=== PATIENT | female | born 1955 | race Caucasian/White ===

== ENCOUNTER → 2016-07-18 14:08 | Outpatient (CLI) | payer BC ==
[~2016-07-18 14:08] MED LIST: BETAPACE160 MG PO; COUMADIN5 MG PO; CYMBALTA60 MG PO; FLUTICASONE PRO16 GM NASAL; PERCOCET 10/3251 TA1 PO; SOMA350 MG PO; TOPAMAX50 MG PO; VIBRAMYCIN 100100 MG PO
[2016-07-18 14:33] LABS: HEMATOCRIT 35.3 % (36.0-48.0); HEMOGLOBIN 11.7 g/dL (12-16); MCH 28.7 pg (26.0-34.0); MCHC 33.1 g/dL (31.0-37.0); MCV 86.5 fL (80.0-100.0); MEAN PLATELET VOLUME 9.5 fL (7.4-10.4); PLATELET COUNT 231 10x3/uL (130-400); RBC 4.08 10x6/uL (4.00-5.40); RDW 14.5 % (11.5-14.5); WBC 19.1 10x3/uL (4.8-10.8)
[2016-07-18 15:40] LABS: ERYTHROCYTE SEDIMENTATION RATE 28 mm/hr (0-30)
[2016-07-19 18:49] VITALS: BMI 31.3
== END | disposition home or self-care (01) ==
LOC: D.LAB 14:08
PROVIDERS: Orthopaedic Surgery
DX: M25.511 Pain in right shoulder (principal)

== ENCOUNTER 2016-07-19 14:02 | Inpatient (IN) | payer BC ==
[~2016-07-19] VITALS: Ht 152.4 cm; Wt 79.2 kg
[2016-07-19] MEDS ORDERED: SOMA350 MG PO (15:09)
[2016-07-19] MEDS ORDERED: PERCOCET 10/3251 TA1 PO (15:10)
[2016-07-19] MEDS ORDERED: VIBRAMYCIN 100100 MG PO (15:10)
--- NOTE | 2016-07-19 15:10 | NUR ---
RECEIVED TO ROOM 2215 FROM MD OFFICE VIA . ORIENTED TO ROOM AND CALL LIGHT SYSTEM. IN ROOM. CALL LIGHT IN REACH. WILL CONTINUE WITH PLAN OF CARE.
[2016-07-19] MEDS ORDERED: TOPAMAX50 MG PO (15:11)
[2016-07-19] MEDS ORDERED: BETAPACE160 MG PO (15:12)
[2016-07-19] MEDS ORDERED: FLUTICASONE PRO16 GM NASAL (15:12)
[2016-07-19] MEDS ORDERED: COUMADIN5 MG PO ×2 (15:13→18:14)
[2016-07-19] MEDS ORDERED: CYMBALTA60 MG PO (15:13)
[2016-07-19 15:45] LABS: BASOPHILS 0.1 % (0.0-2.0); EOSINOPHILS 1.2 % (0-7); HEMATOCRIT 37.1 % (36.0-48.0); HEMOGLOBIN 12.3 g/dL (12-16); IMMATURE GRANULOCYTES 0.4 % (0-5); LYMPHOCYTES 2.8 % (15-50); MCH 28.3 pg (26.0-34.0); MCHC 33.2 g/dL (31.0-37.0); MCV 85.5 fL (80.0-100.0); MEAN PLATELET VOLUME 9.6 fL (7.4-10.4); MONOCYTES 9.1 % (2-11); NEUTROPHILS 86.4 % (40-80); PLATELET COUNT 252 10x3/uL (130-400); RBC 4.34 10x6/uL (4.00-5.40); RDW 14.5 % (11.5-14.5); WBC 18.8 10x3/uL (4.8-10.8)
[2016-07-19 15:55] LABS: PROTIME 47.6 SECONDS (11.6-15.0)
--- NOTE | 2016-07-19 15:55 | NUR ---
IV SITED TO LEFT FOREARM WITH 22 GA X1 STICK.
[2016-07-19 15:56] LABS: APTT 107.1 SECONDS (22.8-39.4)
[2016-07-19 16:31] LABS: INR 5.05 (0.85-1.17)
[2016-07-19 16:32] LABS: ERYTHROCYTE SEDIMENTATION RATE 32 mm/hr (0-30)
--- NOTE | 2016-07-19 16:33 | NUR ---
DILAUDID INFORMATION RESOURCE CONSULTANT INITIATED. BOLUS GIVEN PER ORDER. BP IS LOW. WILL NOTIFY DR. RAMON.
[2016-07-19 16:44] VITALS: BP 96/34
--- NOTE | 2016-07-19 17:03 | NUR ---
SPOKE WITH DANIEL PENALOZA, ABOUT CRITICAL LABS AND LOW BP. NEW ORDERS RECEIVED.
--- NOTE | 2016-07-19 17:20 | NUR ---
SPOKE WITH KESHIA ABOUT CRITICAL LABS. NEW ORDERS RECEIVED.
[2016-07-19 18:05] LABS: INR 5.29 (0.85-1.17); PROTIME 49.4 SECONDS (11.6-15.0)
--- NOTE | 2016-07-19 18:15 | NUR ---
SPOKE WITH KESHIA ABOUT REPEAT LABS.
--- NOTE | 2016-07-19 18:23 | NUR ---
[facility]. DANIEL PENALOZA, IN ROOM. NO CHANGES IN INITIAL ASSESSMENT. CALL LIGHT IN REACH. WILL CONTINUE WITH PLAN OF CARE.
[2016-07-19 18:49] VITALS: BP 93/46; Ht 152.4 cm; Wt 79.2 kg
[2016-07-19 19:00] VITALS: BP 106/46
--- NOTE | 2016-07-19 19:00 | NUR ---
BOLUS COMPLETE AT THIS TIME AND BP 93/46.
--- NOTE | 2016-07-19 20:00 | NUR ---
ASSESSMENT PER FLOWSHEET. RT SHOULDER RED AND SWOLLEN DOWN TO THE ELBOW ELEVATED ON A PILLOW. IV PATENT LEFT ARM OF 1/2NS AT 100CC'S/HR SITE CLEAR. FACER OPERATOR OF DILAUDID IN USE WITH SETTINGS AT 0.2MG Q10MIN W/4MG Q4H L/O. UP AD RADHA TO BR VOIDS WELL. ASSISTED BACK TO BED. SR UP X2 CALL LIGHT WITHIN REACH.
--- NOTE | 2016-07-19 21:30 | NUR ---
MEDS GIVEN PER MAR.
--- NOTE | 2016-07-19 21:33 | NUR ---
TEMP ELEVATION NOTED OF 101.2. TYLENOL 650 PO GIVEN FOR TEMP ELEVATION.
[2016-07-20] VITALS: BP 92/40
--- NOTE | 2016-07-20 | NUR ---
RESTING QUIETLY SPOUSE AT BEDSIDE.
--- NOTE | 2016-07-20 01:55 | NUR ---
EYES CLOSED RESPIRATIONS WITH EASE AND UNLABORED.
[2016-07-20 04:00] VITALS: BP 101/34
[2016-07-20 05:35] LABS: BASOPHILS 0.1 % (0.0-2.0); EOSINOPHILS 2.1 % (0-7); HEMATOCRIT 32.8 % (36.0-48.0); HEMOGLOBIN 10.7 g/dL (12-16); IMMATURE GRANULOCYTES 0.3 % (0-5); LYMPHOCYTES 5.6 % (15-50); MCH 28.1 pg (26.0-34.0); MCHC 32.6 g/dL (31.0-37.0); MCV 86.1 fL (80.0-100.0); MEAN PLATELET VOLUME 9.5 fL (7.4-10.4); MONOCYTES 8.4 % (2-11); NEUTROPHILS 83.5 % (40-80); PLATELET COUNT 233 10x3/uL (130-400); RBC 3.81 10x6/uL (4.00-5.40); RDW 14.5 % (11.5-14.5)
[2016-07-20 05:50] LABS: INR 4.43 (0.85-1.17); PROTIME 42.9 SECONDS (11.6-15.0)
[2016-07-20 06:06] LABS: WBC 11.7 10x3/uL (4.8-10.8)
[2016-07-20 06:12] LABS: ALBUMIN 2.2 g/dL (3.4-5.0); ALKALINE PHOSPHATASE 112 U/L (46-116); ALT (SGPT) 17 U/L (10-68); CALCIUM 8.3 mg/dL (8.5-10.1); CARBON DIOXIDE 23.4 mmol/L (21.0-32.0); CREATININE - SERUM 0.6 mg/dL (0.6-1.3); GLUCOSE 123 mg/dL (74-106); PROTEIN - SERUM 5.8 g/dL (6.4-8.2); UREA NITROGEN 11 mg/dL (7-18); eGFR NON AFRICAN AMERICAN > 90 mL/min (90-120)
[2016-07-20 06:25] LABS: CALC OSMOLALITY 271 mosm/kg (275-300); CHLORIDE - SERUM 103 mmol/L (98-107); POTASSIUM - SERUM 3.5 mmol/L (3.5-5.1); SODIUM 136 mmol/L (136-145)
--- NOTE | 2016-07-20 08:19 | NUR ---
SCHEDULED MEDICATIONS ADMINISTERED AT THIS TIME. ASSESSMENT PERFORMED PER FLOWSHEET. REMAINS AT BEDSIDE. SCD'S APPLIED TO BILATERAL LOWER EXTREMETIES. IV TO LEFT FOREARM PATENT WITH NO S/S OF INFILTRATION PRESENT. CALL LIGHT IN REACH, BED IN LOWEST POSITION WITH SRX2 AND WHEELS LOCKED. WILL CONTINUE WITH PLAN OF CARE.
[2016-07-20 08:24] VITALS: BP 99/58
--- NOTE | 2016-07-20 11:24 | NUR ---
EXISTING PRECINCT POLICE LIEUTENANT DILAUDID SYRINGE EMPTY AT THIS TIME. NEW SYRINGE REPLACED IN MACHINE AND PROGRAMMED PER ORDER. DENIES FURTHER NEEDS. AT BEDSIDE. WILL CONTINUE WITH PLAN OF CARE.,
[2016-07-20 11:59] VITALS: BP 106/61
--- NOTE | 2016-07-20 14:46 | NUR ---
Patient Name: JULIET KOROMA Admission Status: Urgent Accout number: [id number] Admission Date: 07-19-2016 : 1955 Admission Diagnosis:PAIN IN RIGHT SHOULDER Attending: DANELLE Current LOS: 1 Anticipated DC Date: 07-22-2016 Planned Disposition: Home Primary Insurance: [email or web address] [facility] Discharge Planning Comments: CM SPOKE WITH PATIENT AND SPOUSE (FAN) REGARDING D/C NEEDS AND PLANS. SPOUSE WILL DRIVE PATIENT HOME AT DISCHARGE. PATIENT HAS 1 STEP W/O RAILS TO ENTER HOME AND NO STAIRS INSIDE. PATIENT IS INDEPENDENT WITH HER CARE AND HAS A WALKER, WHEELCHAIR, BS COMMODE, SHOWER CHAIR, AND CANE IF NEEDED. PATIENTS PCP IS DR. VALENCIA AND PHARMACY IS [facility] ON [address] PATIENT DOES NOT WANT HOME HEALTH AT DISCHARGE. SPOUSE STATED HE WAS HER HOMEHEALTH. CM WILL CONTINUE TO FOLLOW PATIENT WITH D/C NEEDS AND PLANS. PCP DR. ANNIE GARCIA ON [address] [phone] FAN (SPOUSE) [phone] Energy Manager: [employer] Is the patient Alert and Oriented? Yes 0 * How many steps to enter\exit or inside your home? 1 0 * PCP DR. VALENCIA 0 * Pharmacy [facility] [address] 0 * Preadmission Environment Home with Family 0 * ADLs Independent 0 * Equipment Bedside Commode Cane Shower Chair Walker Wheelchair 0 * List name and contact numbers for known caregivers / representatives who currently or will assist patient after discharge: FAN (SPOUSE) [phone] 0 * Community resources currently utilized None 0 * Additional services required to return to the preadmission environment? Yes 0 * Can the patient safely return to the preadmission environment? Yes 0 * Has this patient been hospitalized within the prior 30 days at any hospital? No 0 Grand Total: 0
[2016-07-20 16:12] VITALS: BP 114/63
[2016-07-20 20:00] VITALS: BP 111/60
--- NOTE | 2016-07-20 20:00 | NUR ---
ASSESSMENT PER FLOWSHEET. IV PATENT LEFT ARM OF 1/2NS AT 100CC'S/HR SITE CLEAR HEAD USHER OF DILAUDID IN USE WITH SETTINGS AT 0.2MG Q10MIN W/4Q4H L/O. RT SHOULDER AND ARM RED AND SWOLLEN. ELEVATED ON PILLOW. TELM. SHOWS ST WITH HR 103. SPOUSE AT BEDSIDE.
--- NOTE | 2016-07-20 21:30 | NUR ---
MEDS GIVEN PER MAR.
[2016-07-21] VITALS: BP 118/60
--- NOTE | 2016-07-21 | NUR ---
NPO AFTER MIDNIGHT FOR POSSIBLE SURGERY IN AM LABS PENDING.
--- NOTE | 2016-07-21 02:47 | NUR ---
RESTING QUIETLY DENIES NEEDS.
[2016-07-21 03:00] VITALS: BP 107/62
[2016-07-21 05:34] LABS: BASOPHILS 0.1 % (0.0-2.0); EOSINOPHILS 2.3 % (0-7); HEMATOCRIT 31.9 % (36.0-48.0); HEMOGLOBIN 10.4 g/dL (12-16); IMMATURE GRANULOCYTES 0.3 % (0-5); LYMPHOCYTES 8.3 % (15-50); MCH 27.7 pg (26.0-34.0); MCHC 32.6 g/dL (31.0-37.0); MCV 84.8 fL (80.0-100.0); MONOCYTES 9.1 % (2-11); NEUTROPHILS 79.9 % (40-80); PLATELET COUNT 232 10x3/uL (130-400); RBC 3.76 10x6/uL (4.00-5.40); RDW 14.3 % (11.5-14.5); WBC 9.9 10x3/uL (4.8-10.8)
[2016-07-21 05:48] LABS: INR 2.29 (0.85-1.17); PROTIME 25.3 SECONDS (11.6-15.0)
[2016-07-21 05:55] LABS: ALBUMIN 2.1 g/dL (3.4-5.0); ALKALINE PHOSPHATASE 102 U/L (46-116); ALT (SGPT) 15 U/L (10-68); CALC OSMOLALITY 268 mosm/kg (275-300); CALCIUM 8.3 mg/dL (8.5-10.1); CARBON DIOXIDE 26.9 mmol/L (21.0-32.0); CHLORIDE - SERUM 100 mmol/L (98-107); CREATININE - SERUM 0.5 mg/dL (0.6-1.3); GLUCOSE 120 mg/dL (74-106); POTASSIUM - SERUM 3.2 mmol/L (3.5-5.1); PROTEIN - SERUM 5.8 g/dL (6.4-8.2); SODIUM 135 mmol/L (136-145); VANCOMYCIN - TROUGH 9.8 ug/mL (10.0-20.0); eGFR NON AFRICAN AMERICAN > 90 mL/min (90-120)
[2016-07-21 06:07] LABS: UREA NITROGEN 6 mg/dL (7-18)
--- NOTE | 2016-07-21 07:00 | NUR ---
REPORT RECEIVED FROM COIL WRAPPER NURSE. CALL LIGHT IN REACH.
--- NOTE | 2016-07-21 08:44 | NUR ---
ASSESSMENT COMPLETED. AM MEDS ADMINISTERED WITH A SIP OF WATER. CONSENT FORMS SIGNED AND WITNESSED. AT BEDSIDE. CALL LIGHT IN REACH. WILL CONTINUE WITH PLAN OF CARE.
[2016-07-21 09:08] VITALS: BP 132/72
--- NOTE | 2016-07-21 10:20 | NUR ---
NO NEEDS VOICED AT THIS TIME. CALL LIGHT IN REACH.
--- NOTE | 2016-07-21 12:19 | NUR ---
PREOP MEDS ADMINISTERED PER ORDER. SCOPOLAMINE PATCH IS NOT ON THE FLOOR. PATIENT LIPS HAS SWOLLEN D/T USING LEMON SWABS.
[2016-07-21 12:55] VITALS: BP 157/66
--- NOTE | 2016-07-21 14:00 | NUR ---
TO OR VIA BED.
[2016-07-21 14:38] LABS: INR 2.04 (0.85-1.17)
--- NOTE | 2016-07-21 16:30 | NUR ---
REMAINS IN SURGERY AT THIS TIME. WILL MONITOR PT AND CONTINUE WITH PLAN OF CARE WHEN SHE RETURNS TO 2215.
[2016-07-21 16:45] VITALS: BP 139/76
--- NOTE | 2016-07-21 16:48 | NUR ---
RECEIVED BACK TO ROOM 2215 FROM OR VIA BED. VSS.
--- NOTE | 2016-07-21 17:36 | NUR ---
HEPARIN SUBQ AND ANCEF IVPB.
--- NOTE | 2016-07-21 18:55 | NUR ---
NO CHANGES IN INITIAL ASSESSMENT. CALL LIGHT IN REACH. WILL CONTINUE WITH PLAN OF CARE.
--- NOTE | 2016-07-21 19:55 | NUR ---
PT LYING IN BED RESTING WITH EYES CLOSED, SNORING RESP, EASILY AROUSED, ASSESSMENT COMPLETED, NO ACUTE DISTRESS NOTED, DSG TO R SHOULDER CDI WITH ICE PACK IN PLACE, SR'S UP, CL IN REACH, WILL MONITOR
[2016-07-21 20:00] VITALS: BP 125/74
--- NOTE | 2016-07-21 21:37 | NUR ---
MED GIVEN PER MAR, RITESH WELL, TALKING ON PHONE, DENIES NEEDS, VISITOR IN ROOM, FALL PRECAUTIONS IN PLACE, CL IN REACH
[2016-07-22] VITALS: BP 128/79
--- NOTE | 2016-07-22 00:22 | NUR ---
PT PULLED L AC IV OUT WITH CATH INTACT, RESITED IN L FA X3 ATTEMPT, RITESH WELL
--- NOTE | 2016-07-22 01:08 | NUR ---
MEDS GIVEN PER MAR, RITESH WELL, DENIES NEEDS, SPOUSE IN ROOM, CL IN REACH
--- NOTE | 2016-07-22 03:20 | NUR ---
RESTING WITH EYES CLOSED, RESP WITH EASE, NO DISTRESS NOTED, SPOUSE IN ROOM, CL IN REACH
[2016-07-22 04:00] VITALS: BP 158/84
--- NOTE | 2016-07-22 04:37 | NUR ---
RIKY DELEON PER MAR, RITESH WELL, DENIES NEEDS, CL IN REACH
[2016-07-22 06:19] LABS: BASOPHILS 0 % (0.0-2.0); EOSINOPHILS 0 % (0-7); HEMATOCRIT 29.3 % (36.0-48.0); HEMOGLOBIN 9.6 g/dL (12-16); IMMATURE GRANULOCYTES 0.5 % (0-5); LYMPHOCYTES 3.3 % (15-50); MCH 27.7 pg (26.0-34.0); MCHC 32.8 g/dL (31.0-37.0); MCV 84.4 fL (80.0-100.0); MEAN PLATELET VOLUME 9.1 fL (7.4-10.4); MONOCYTES 5.2 % (2-11); PLATELET COUNT 265 10x3/uL (130-400); RBC 3.47 10x6/uL (4.00-5.40); RDW 14.1 % (11.5-14.5)
[2016-07-22 06:27] LABS: WBC 15.5 10x3/uL (4.8-10.8)
[2016-07-22 06:33] LABS: INR 2.02 (0.85-1.17); PROTIME 22.9 SECONDS (11.6-15.0)
[2016-07-22 06:42] LABS: ALBUMIN 1.9 g/dL (3.4-5.0); ALKALINE PHOSPHATASE 102 U/L (46-116); ALT (SGPT) 16 U/L (10-68); CALC OSMOLALITY 273 mosm/kg (275-300); CALCIUM 8.4 mg/dL (8.5-10.1); CARBON DIOXIDE 25.4 mmol/L (21.0-32.0); CHLORIDE - SERUM 103 mmol/L (98-107); CREATININE - SERUM 0.6 mg/dL (0.6-1.3); GLUCOSE 135 mg/dL (74-106); POTASSIUM - SERUM 3.3 mmol/L (3.5-5.1); PROTEIN - SERUM 5.7 g/dL (6.4-8.2); SODIUM 137 mmol/L (136-145); UREA NITROGEN 6 mg/dL (7-18); eGFR NON AFRICAN AMERICAN > 90 mL/min (90-120)
--- NOTE | 2016-07-22 06:56 | NUR ---
40 MEQ KCL GIVEN PER E. PROTOCOL FOR LEVEL OF 3.3, RITESH WELL
--- NOTE | 2016-07-22 07:05 | NUR ---
REPORT RECEIVED FROM LIFE MANAGER NURSE. CALL LIGHT IN REACH.
[2016-07-22 07:57] VITALS: BP 117/59
--- NOTE | 2016-07-22 08:00 | NUR ---
ASSESSMENT COMPLETED. AT BEDSIDE. CALL LIGHT IN REACH. WILL CONTINUE WITH PLAN OF CARE.
--- NOTE | 2016-07-22 10:35 | NUR ---
PATIENT ALERT IN BED. NO SIGNS OF DISTRESS NOTED. SIDE RAILS UP X2. BED IN LOW POSITION. CALL LIGHT IN REACH. PRIMARY NURSE RIGGS, BABY FORMULA WORKER PRESENT.
--- NOTE | 2016-07-22 10:37 | NUR ---
AM MEDS ADMINISTERED. CALL LIGHT IN REACH.
--- NOTE | 2016-07-22 10:50 | NUR ---
ICE PACK REFILLED AND PLACED TO RIGHT SHOULDER.
--- NOTE | 2016-07-22 11:31 | NUR ---
PLACED IN CONTACT ISOLATION AND EXPLAINED TO PATIENT. VERBALIZED UNDERSTANDING.
[2016-07-22 13:07] VITALS: BP 109/45
--- NOTE | 2016-07-22 13:20 | NUR ---
NO NEEDS VOICED AT THIS TIME. CALL LIGHT IN REACH.
[2016-07-22 14:48] LABS: POTASSIUM - SERUM 3.5 mmol/L (3.5-5.1); VANCOMYCIN - TROUGH 11.6 ug/mL (10.0-20.0)
[2016-07-22 15:09] VITALS: BP 96/53
--- NOTE | 2016-07-22 15:30 | NUR ---
AISSATOU AND VANC PER ORDER. CALL LIGHT IN REACH.
--- NOTE | 2016-07-22 16:05 | NUR ---
DR. DAVILA IN ROOM TO SEE PATIENT.
--- NOTE | 2016-07-22 18:53 | NUR ---
NO CHANGES IN INITIAL ASSESSMENT. SCDs TO BLE. CALL LIGHT IN REACH. WILL CONTINUE WITH PLAN OF CARE.
--- NOTE | 2016-07-22 19:40 | NUR ---
PT SITTING UP IN BED, ASSESSMENT COMPLETED, NO ACUTE DISTRESS NOTED, DENIES NEEDS AT THIS TIME, SAFETY MEASURES IN PLACE, CL IN REACH, WILL MONITOR
[2016-07-22 20:00] VITALS: BP 107/61
--- NOTE | 2016-07-22 21:53 | NUR ---
MEDS GIVEN PER MAR, RITESH WELL, DENIES NEEDS, CL IN REACH
--- NOTE | 2016-07-22 23:10 | NUR ---
IV VANC HUNG PER MAR, RITESH WELL, ALL TUBING CHANGED PER PROTOCOL, IN ROOM, PT DENIES NEEDS, CL IN REACH
[2016-07-23] VITALS: BP 104/52
--- NOTE | 2016-07-23 01:15 | NUR ---
MEDS GIVEN PER MAR, RITESH WELL, DENIES NEEDS, AT BEDSIDE, CL IN REACH
--- NOTE | 2016-07-23 03:15 | NUR ---
RESTING WITH EYES CLOSED, NO DISTRESS NOTED, CL IN REACH
[2016-07-23 04:00] VITALS: BP 104/59
[2016-07-23 04:58] LABS: BASOPHILS 0.1 % (0-2); HEMATOCRIT 25.4 % (36.0-48.0); HEMOGLOBIN 8.5 g/dL (12-16); LYMPHOCYTES 13.4 % (15-50); MCH 28.3 pg (26.0-34.0); MCHC 33.5 g/dL (31.0-37.0); MCV 84.7 fL (80.0-100.0); MEAN PLATELET VOLUME 8.4 fL (7.4-10.4); MONOCYTES 10.9 % (2-11); NEUTROPHILS 72.6 % (40-80); PLATELET COUNT 225 10x3/uL (130-400); RDW 14.4 % (11.5-14.5); WBC 7.7 10x3/uL (4.8-10.8)
[2016-07-23 05:15] LABS: PROTIME 18.8 SECONDS (11.6-15.0)
[2016-07-23 05:22] LABS: INR 1.58 (0.85-1.17)
[2016-07-23 05:28] LABS: ALBUMIN 1.8 g/dL (3.4-5.0); ALKALINE PHOSPHATASE 79 U/L (46-116); ALT (SGPT) 18 U/L (10-68); CALC OSMOLALITY 278 mosm/kg (275-300); CALCIUM 8.1 mg/dL (8.5-10.1); CARBON DIOXIDE 26.6 mmol/L (21.0-32.0); CHLORIDE - SERUM 107 mmol/L (98-107); CREATININE - SERUM 0.6 mg/dL (0.6-1.3); GLUCOSE 113 mg/dL (74-106); POTASSIUM - SERUM 3.4 mmol/L (3.5-5.1); PROTEIN - SERUM 5.5 g/dL (6.4-8.2); SODIUM 141 mmol/L (136-145); UREA NITROGEN 4 mg/dL (7-18); eGFR NON AFRICAN AMERICAN > 90 mL/min (90-120)
--- NOTE | 2016-07-23 07:10 | NUR ---
REPORT RECEIVED FROM INFORMATION TECHNOLOGY SECURITY MANAGER NURSE. CALL LIGHT IN REACH.
[2016-07-23 08:17] VITALS: BP 103/64
--- NOTE | 2016-07-23 08:30 | NUR ---
ASSESSMENT COMPLETED. SCDs TO BLE. IN ROOM. CALL LIGHT IN REACH. WILL CONTINUE WITH PLAN OF CARE.
--- NOTE | 2016-07-23 10:29 | NUR ---
AM MEDS ADMINISTERED. ICE PACK FILLED AND PLACED TO RIGHT SHOULDER. IN ROOM. CALL LIGHT IN REACH. WILL CONTINUE WITH PLAN OF CARE.
[2016-07-23 11:45] VITALS: BP 96/55
--- NOTE | 2016-07-23 12:40 | NUR ---
AT BEDSIDE. CALL LIGHT IN REACH. NO NEEDS VOICED AT THIS TIME.
--- NOTE | 2016-07-23 14:20 | NUR ---
NO NEEDS VOICED AT THIS TIME. CALL LIGHT IN REACH.
[2016-07-23 15:35] VITALS: BP 109/52
--- NOTE | 2016-07-23 16:56 | NUR ---
ANCEF IVPB. HEPARIN SUBQ. AT BEDSIDE. CALL LIGHT IN REACH.
--- NOTE | 2016-07-23 17:00 | NUR ---
PATIENT UP IN HALLWAY AMBULATING WITH NO COMPLAINTS OR PROBLEMS AT THIS TIME. IV INTACT.
--- NOTE | 2016-07-23 18:45 | NUR ---
NO CHANGES IN INITIAL ASSESSMENT. CALL LIGHT IN REACH. SCDs OFF. AT BEDSIDE. CALL LIGHT IN REACH. WILL CONTINUE WITH PLAN OF CARE.
--- NOTE | 2016-07-23 19:20 | NUR ---
ASSESSMENT COMPLETED, NO ACUTE DISTRESS NOTED, DENIES NEEDS AT THIS TIME, FALL PRECAUTIONS IN PLACE, CL IN REACH, WILL MONITOR
[2016-07-23 20:00] VITALS: BP 98/46
--- NOTE | 2016-07-23 21:04 | NUR ---
MEDS GIVEN PER MAR, RITESH WELL, DENIES NEEDS, CL IN REACH
--- NOTE | 2016-07-23 23:36 | NUR ---
ANCEF HUNG PER MAR, RITESH WELL, DENIES NEEDS, SPOUSE AT BEDSIDE, CL IN REACH
--- NOTE | 2016-07-23 23:47 | NUR ---
AGRICULTURE ENGINEER PUMP FILLED PER MAR
[2016-07-24] VITALS: BP 109/61
--- NOTE | 2016-07-24 01:11 | NUR ---
HEPARIN INJECTION GIVEN PER MAR, RITESH WELL, DENIES NEEDS, CL IN REACH
--- NOTE | 2016-07-24 03:22 | NUR ---
RESTING WITH EYES CLOSED, RESP WITH EASE, NO DISTRESS NOTED, SPOUSE IN ROOM, CL IN REACH
[2016-07-24 04:00] VITALS: BP 118/63
[2016-07-24 05:43] LABS: BASOPHILS 0.6 % (0-2); EOSINOPHILS 3.6 % (0-7); HEMATOCRIT 28.6 % (36.0-48.0); HEMOGLOBIN 9.2 g/dL (12-16); IMMATURE GRANULOCYTES 4.5 % (0-5); LYMPHOCYTES 22.5 % (15-50); MCHC 32.2 g/dL (31.0-37.0); MEAN PLATELET VOLUME 8.9 fL (7.4-10.4); MONOCYTES 8.9 % (2-11); NEUTROPHILS 59.9 % (40-80); RBC 3.29 10x6/uL (4.00-5.40); RDW 14.8 % (11.5-14.5); WBC 6.6 10x3/uL (4.8-10.8)
[2016-07-24 05:47] LABS: MCV 86.9 fL (80.0-100.0); PLATELET COUNT 299 10x3/uL (130-400)
[2016-07-24 05:56] LABS: INR 1.37 (0.85-1.17); PROTIME 16.7 SECONDS (11.6-15.0)
[2016-07-24 06:20] LABS: ALBUMIN 2.1 g/dL (3.4-5.0); ALKALINE PHOSPHATASE 94 U/L (46-116); ALT (SGPT) 22 U/L (10-68); BILIRUBIN - TOTAL 0.23 mg/dL (0.2-1.3); CALC OSMOLALITY 281 mosm/kg (275-300); CALCIUM 8.8 mg/dL (8.5-10.1); CARBON DIOXIDE 28.4 mmol/L (21.0-32.0); CHLORIDE - SERUM 108 mmol/L (98-107); CREATININE - SERUM 0.5 mg/dL (0.6-1.3); GLUCOSE 101 mg/dL (74-106); POTASSIUM - SERUM 4.4 mmol/L (3.5-5.1); PROTEIN - SERUM 6.2 g/dL (6.4-8.2); SODIUM 143 mmol/L (136-145); UREA NITROGEN 3 mg/dL (7-18); eGFR NON AFRICAN AMERICAN > 90 mL/min (90-120)
--- NOTE | 2016-07-24 07:10 | NUR ---
REPORT RECEIVED FROM ART THERAPY SPECIALIST NURSE. CALL LIGHT IN REACH.
[2016-07-24 08:55] VITALS: BP 116/65
--- NOTE | 2016-07-24 09:15 | NUR ---
DANIEL PENALOZA, IN ROOM. CALL LIGHT IN REACH.
--- NOTE | 2016-07-24 10:25 | NUR ---
ASSESSMENT COMPLETED. AM MEDS ADMINISTERED. ICE PACK FILLED AND PLACE TO SHOULDER. CALL LIGHT IN REACH. WILL CONTINUE WITH PLAN OF CARE.
--- NOTE | 2016-07-24 12:25 | NUR ---
NO NEEDS VOICED AT THIS TIME. CALL LIGHT IN REACH.
[2016-07-24 12:48] VITALS: BP 122/53
--- NOTE | 2016-07-24 14:52 | NUR ---
DENIES NEEDS AT THIS TIME. CALL LIGHT IN REACH.
--- NOTE | 2016-07-24 14:53 | NUR ---
PT AOX4 RESP EVEN AND NONLABORED PT HERE FOR RIGHT SHOULDER REPAIR WITH DR. RAMON. PT RECEIVING IV PAIN AND ANTIBIOTIC MEDICATIONS VIA LEFT FOREARM. SRX2 CALL LIGHT WITHIN REACH BED AT LOWEST SETTING WILL CONTINUE TO MONITOR
--- NOTE | 2016-07-24 16:20 | NUR ---
RESTING WITH EYES CLOSED. RESP EVEN AND UNLABORED. CALL LIGHT IN REACH.
--- NOTE | 2016-07-24 17:25 | NUR ---
AFTERNOON MEDS ADMNISTERED PER ORDER. CUP OF ICE TAKEN TO PATIENT.
[2016-07-24 17:35] VITALS: BP 113/59
--- NOTE | 2016-07-24 18:02 | NUR ---
NO CHANGES IN INITIAL ASSESSMENT. CALL LIGHT IN REACH. SCDs OFF. WILL CONTINUE WITH PLAN OF CARE.
[2016-07-24 20:00] VITALS: BP 114/65
--- NOTE | 2016-07-25 02:00 | NUR ---
PT IN BED WITH NO DISTRESS. RESPIRATIONS EVEN AND UNLABORED. SIDE RAILS X 2. BED LOW. CALL LIGHT IN REACH.
[2016-07-25 04:00] VITALS: BP 108/60
[2016-07-25 06:10] LABS: BASOPHILS 0.3 % (0-2); EOSINOPHILS 3.8 % (0-7); HEMATOCRIT 26.8 % (36.0-48.0); HEMOGLOBIN 8.7 g/dL (12-16); IMMATURE GRANULOCYTES 4.4 % (0-5); LYMPHOCYTES 18.7 % (15-50); MCH 28.2 pg (26.0-34.0); MCHC 32.5 g/dL (31.0-37.0); MCV 86.7 fL (80.0-100.0); MEAN PLATELET VOLUME 8.5 fL (7.4-10.4); MONOCYTES 8.2 % (2-11); NEUTROPHILS 64.6 % (40-80); PLATELET COUNT 307 10x3/uL (130-400); RBC 3.09 10x6/uL (4.00-5.40); RDW 14.5 % (11.5-14.5); WBC 6.8 10x3/uL (4.8-10.8)
[2016-07-25 07:16] LABS: ALBUMIN 2.1 g/dL (3.4-5.0); ALKALINE PHOSPHATASE 94 U/L (46-116); ALT (SGPT) 22 U/L (10-68); BILIRUBIN - TOTAL 0.19 mg/dL (0.2-1.3); CALCIUM 8.3 mg/dL (8.5-10.1); CARBON DIOXIDE 27.3 mmol/L (21.0-32.0); CHLORIDE - SERUM 108 mmol/L (98-107); CREATININE - SERUM 0.5 mg/dL (0.6-1.3); GLUCOSE 96 mg/dL (74-106); POTASSIUM - SERUM 4.3 mmol/L (3.5-5.1); PROTEIN - SERUM 5.3 g/dL (6.4-8.2); SODIUM 143 mmol/L (136-145); eGFR NON AFRICAN AMERICAN > 90 mL/min (90-120)
[2016-07-25 07:18] LABS: CALC OSMOLALITY 281 mosm/kg (275-300); UREA NITROGEN 4 mg/dL (7-18)
[2016-07-25 08:33] VITALS: BP 130/77
--- NOTE | 2016-07-25 08:41 | NUR ---
IV ACCESS-22 GAUGE INSERTED IN LEFT FOREARM AFTER CURRENT IV REMOVED WITH CATH INTACT DUE TO REDNESS. LINDA GALLO RN
[2016-07-25 10:10] LABS: INR 1.15 (0.85-1.17); PROTIME 14.5 SECONDS (11.6-15.0)
--- NOTE | 2016-07-25 15:08 | NUR ---
PATEINT OFF THE UNIT TO SURGERY. PREOP PEPCID GIVEN. IVABT ANCEF SENT WITH HER NS IVF. FOLLOWING HER TO WAIT IN SURGERY WAITING.
[2016-07-25 17:55] VITALS: BP 95/67
--- NOTE | 2016-07-25 20:00 | NUR ---
ASSESSMENT PER FLOWSHEET. IV PATENT LEFT ARM OF 1/2NS AT 30CC'S/HR SITE CLEAR. TECHNICAL SUPPORT DIRECTOR OF DILAUDID IN USE WITH SETTINGS AT 0.2MG Q10MIN W/4MG Q4H L/O. DRESSING TO RT SHOULDER C/D/I. TELM. SHOWS SR WITH HR 87.
--- NOTE | 2016-07-25 21:00 | NUR ---
MEDS GIVEN PER MAR. UP TO BR VOIDS WELL. SPOUSE IN ROOM. SR UP X2 CALL LIGHT WITHIN REACH.
--- NOTE | 2016-07-26 | NUR ---
RESTING QUIETLY RESPIRATIONS WITH EASE AND UNLABORED.
--- NOTE | 2016-07-26 03:39 | NUR ---
EYES CLOSED RESPIRATIONS WITH EASE AND UNLABORED.
[2016-07-26 04:00] VITALS: BP 109/62
[2016-07-26 06:00] LABS: BASOPHILS 0.2 % (0-2); EOSINOPHILS 2.7 % (0-7); HEMATOCRIT 27.4 % (36.0-48.0); HEMOGLOBIN 8.8 g/dL (12-16); IMMATURE GRANULOCYTES 3.7 % (0-5); LYMPHOCYTES 13.3 % (15-50); MCH 27.9 pg (26.0-34.0); MCHC 32.1 g/dL (31.0-37.0); MEAN PLATELET VOLUME 8.5 fL (7.4-10.4); MONOCYTES 7.9 % (2-11); NEUTROPHILS 72.2 % (40-80); PLATELET COUNT 327 10x3/uL (130-400); RBC 3.15 10x6/uL (4.00-5.40); RDW 14.5 % (11.5-14.5); WBC 8.1 10x3/uL (4.8-10.8)
[2016-07-26 06:33] LABS: APTT 33.3 SECONDS (22.8-39.4); INR 1.14 (0.85-1.17); PROTIME 14.5 SECONDS (11.6-15.0)
[2016-07-26 06:46] LABS: ALKALINE PHOSPHATASE 93 U/L (46-116); ALT (SGPT) 21 U/L (10-68); C-REACTIVE PROTEIN 3.3 mg/dL (0.0-0.9); CALCIUM 8.4 mg/dL (8.5-10.1); CARBON DIOXIDE 27.3 mmol/L (21.0-32.0); CHLORIDE - SERUM 103 mmol/L (98-107); GLUCOSE 107 mg/dL (74-106); POTASSIUM - SERUM 3.8 mmol/L (3.5-5.1); SODIUM 139 mmol/L (136-145)
[2016-07-26 06:47] LABS: CALC OSMOLALITY 275 mosm/kg (275-300); CREATININE - SERUM 0.7 mg/dL (0.6-1.3); UREA NITROGEN 8 mg/dL (7-18); eGFR NON AFRICAN AMERICAN > 90 mL/min (90-120)
[2016-07-26 07:49] LABS: ERYTHROCYTE SEDIMENTATION RATE 55 mm/hr (0-30)
[2016-07-26] MEDS ORDERED: DILAUDID4 MG PO (08:42)
[2016-07-26] MEDS ORDERED: Ancef 2 GM/Dextrose IVPB (08:42)
[2016-07-26 09:03] VITALS: BP 112/51
--- NOTE | 2016-07-26 09:22 | NUR ---
SCHEDULED MEDICATIONS ADMINISTERED AND TAKEN WITHOUT DIFFICULTY AT THIS TIME. ASSESSMENT PERFORMED PER FLOWSHEET. PT TO D/C HOME TODAY WITH HOME HEALTH.
[2016-07-26] MEDS ORDERED: DIFLUCAN150 MG PO (10:22)
[2016-07-26 12:16] VITALS: BP 121/64
--- NOTE | 2016-07-26 13:40 | NUR ---
DRESSING TO RIGHT SHOULD REMOVED AT THIS TIME. PACKING REMOVED AND 4X4'S WITH METIPORE TAPE PLACED OVER INCISION SITE. PT TOLERATED WITH MINIMAL PAIN.
[2016-07-26 14:58] VITALS: BP 116/53
--- NOTE | 2016-07-26 15:25 | NUR ---
REQUESTING FOR IV TO BE DISCONNECTED SO THAT SHE MAY BE READY WHEN HER ARRIVES TO PICK HER UP FOR DISCHARGE.
--- NOTE | 2016-07-26 15:45 | NUR ---
D/C INSTRUCTIONS REVIEWED WITH PT. SHE DENIES QUESTIONS OR CONCERNS. WILL D/C HOME WITH .
--- NOTE | 2016-07-26 16:51 | NUR ---
LATE ENTRY: PATIENT D/C HOME TODAY- [facility]. PATIENT SIGNED THE GO WITH [facility] ABX [facility]ERAP[facility]. [facility] IS DELIVERING TODAY MED TO HOME. [facility] AWARE OF D/C AND SEEING PATIENT TONIGHT.
--- NOTE | 2016-07-28 13:28 | OP ---
PATIENT NAME: JULIET KOROMA MEDICAL RECORD: [id number] :57 LOCATION:[id number] ADMISSION DATE:07/19/16 SURGEON: RUBY RAMON MD DATE OF OPERATION: 07/25/2016 PREOPERATIVE DIAGNOSIS: Right shoulder infection. POSTOPERATIVE DIAGNOSIS: Right shoulder infection. PROCEDURE: Excisional debridement of the right shoulder abscess. SURGEON: Ruby Ramon MD. ANESTHESIA: General. INTRAOPERATIVE COMPLICATIONS: None. SUMMARY OF PATHOLOGIC FINDINGS: The wound cavity had greatly diminished since the index procedure and required much less packing today. OPERATIVE SUMMARY IN DETAIL: After obtaining the appropriate preoperative orthopedic surgery consent as well as anesthetic consultation, evaluation and clearance, the patient was brought to the operating room and placed on the operating table in supine position. After general laryngeal mask was administered, the patient was placed in a left lateral decubitus position. All pressure points were padded to include down leg peroneal pad as well as axillary roll. The patient was held firmly to the operating table using the vacuum pack suction system. Right upper extremity and shoulder were then prepped and draped in routine sterile fashion. The previously placed packing had been removed as a part of the prep. The wound was probed and found to go down the infraspinatus fossa. The muscle belly was still seemed to be intact. Gentle curettage scraping was done as to be sure not to cause any denervation. Having completed this, the wound was copiously irrigated with bulb syringe and then gently packed with half inch iodoform with far less than was required on the index procedure. Having completed this, sterile dressings were applied. The patient was awakened and taken to the recovery room in stable condition. All final needle and sponge counts were correct. TRANSINT:[id number] Voice Confirmation ID: [id number] DOCUMENT ID: [id number] RUBY RAMON MD at 1328 CC: [id number] DICTATION DATE: 07/25/16 1706 [place]: 07/26/16 0040 DIS IN 07/26/16 [facility] [address] [id number]
== END 2016-07-26 15:48 | disposition home health service (06) | DRG 464 ==
LOC: D.MS 14:02
PROVIDERS: Family Medicine; ADMIT Orthopaedic Surgery
PROC: 0R9J4ZZ Drainage of Right Shoulder Joint, Percutaneous Endoscopic Approach (ICD-10-PCS; 2016-07-21)
PROC: 05HC33Z Insertion of Infusion Device into Left Basilic Vein, Percutaneous Approach (ICD-10-PCS; principal; 2016-07-26)
PROC: B54NZZA Ultrasonography of Left Upper Extremity Veins, Guidance (ICD-10-PCS; 2016-07-26)
PROC: 0HBBXZZ Excision of Right Upper Arm Skin, External Approach (ICD-10-PCS; 2016-07-26)
DX: M00.011 Staphylococcal arthritis, right shoulder (principal); L03.113 Cellulitis of right upper limb; I48.91 Unspecified atrial fibrillation; Z79.01 Long term (current) use of anticoagulants; K21.9 Gastro-esophageal reflux disease without esophagitis; K73.9 Chronic hepatitis, unspecified; K59.00 Constipation, unspecified; B95.61 Methicillin susceptible Staphylococcus aureus infection as the cause of diseases classified elsewhere

== ENCOUNTER 2016-10-06 10:14 | Outpatient (CLI) | payer BC ==
[2016-07-19 18:49] VITALS: BMI 31.3
[~2016-10-06 10:14] MED LIST changes: +Ancef 2 GM/Dextrose IVPB; +DIFLUCAN150 MG PO; +DILAUDID4 MG PO
== END 2016-10-06 11:05 ==
LOC: D.MAMMO 10:14
DX: Z12.31 Encounter for screening mammogram for malignant neoplasm of breast (principal)

== ENCOUNTER 2018-12-12 09:00 | Outpatient (CLI) | payer BC ==
[2016-07-19 18:49] VITALS: BMI 31.3
== END 2018-12-12 10:00 | disposition home or self-care (01) ==
LOC: D.MAMMO 09:00
PROVIDERS: ATTEND Clinical Nurse Specialist Adult Health
DX: Z12.31 Encounter for screening mammogram for malignant neoplasm of breast (principal)

== ENCOUNTER 2019-03-09 18:54 | Emergency (ER) | payer BC ==
[~2019-03-09] VITALS: Ht 152.4 cm; Wt 63.6 kg
[2019-03-09 19:20] VITALS: Ht 152.4 cm; Wt 63.6 kg
[2019-03-09] MEDS ORDERED: FLUDROCORTISON0.1 MG (19:24)
[2019-03-09] MEDS ORDERED: AZELASTINE137 MCG/0. NASAL (19:24)
[2019-03-09 21:36] VITALS: BP 129/64
== END 2019-03-09 21:37 | disposition home or self-care (01) ==
LOC: D.ER 18:54
DX: S61.217A Laceration without foreign body of left little finger without damage to nail, initial encounter (principal); W22.8XXA Striking against or struck by other objects, initial encounter

== ENCOUNTER 2019-09-11 07:42 | Outpatient (CLI) | payer BC ==
[~2019-09-11] VITALS: Ht 152.4 cm; Wt 62.7 kg
[~2019-09-11 07:42] MED LIST changes: +AZELASTINE137 MCG/0. NASAL; +FLUDROCORTISON0.1 MG
[2019-09-11 08:07] LABS: CALC OSMOLALITY 285 mosm/kg (275-300); CALCIUM 9.1 mg/dL (8.5-10.1); CARBON DIOXIDE 34.7 mmol/L (21.0-32.0); CHLORIDE - SERUM 106 mmol/L (98-107); CREATININE - SERUM 0.7 mg/dL (0.6-1.3); GLUCOSE 108 mg/dL (74-106); POTASSIUM - SERUM 4.4 mmol/L (3.5-5.1); SODIUM 143 mmol/L (136-145); UREA NITROGEN 13 mg/dL (7-18); eGFR NON AFRICAN AMERICAN 90 mL/min (90-120)
[2019-09-11] MEDS ORDERED: LOVENOX60 MG/0.6 SC (08:22)
[2019-09-11 08:25] VITALS: Ht 152.4 cm; Wt 62.7 kg
[2019-09-11 08:34] LABS: BASOPHILS 0.7 % (0-2); EOSINOPHILS 3.1 % (0-7); HEMATOCRIT 37.7 % (36.0-48.0); IMMATURE GRANULOCYTES 0.2 % (0-5); LYMPHOCYTES 31.4 % (15-50); MCH 29.9 pg (26.0-34.0); MCHC 31.8 g/dL (31.0-37.0); MEAN PLATELET VOLUME 9.8 fL (7.4-10.4); NEUTROPHILS 53.6 % (40-80); RBC 4.01 10x6/uL (4.00-5.40); RDW 13.2 % (11.5-14.5); WBC 4.6 10x3/uL (4.8-10.8)
[2019-09-11 08:37] LABS: PLATELET COUNT 228 10x3/uL (130-400)
[2019-09-11 08:58] LABS: APTT 31.5 SECONDS (22.8-39.4); INR 1.03 (0.85-1.17); PROTIME 13.4 SECONDS (11.6-15.0)
== END 2019-09-11 11:30 | disposition home or self-care (01) ==
LOC: D.SP 07:42 → D.CT 10:00 → D.SP 11:30
PROVIDERS: General Practice; ATTEND Internal Medicine Hematology & Oncology
DX: D50.9 Iron deficiency anemia, unspecified (principal); I48.0 Paroxysmal atrial fibrillation; Z86.73 Personal history of transient ischemic attack (TIA), and cerebral infarction without residual deficits; N64.59 Other signs and symptoms in breast; E86.0 Dehydration